=== PATIENT | female | born 1985 | race Caucasian/White ===

== ENCOUNTER 2018-05-29 18:11 | Emergency (ER) | payer OTHER ==
[2018-05-29 18:32] VITALS: O2SAT 99; BMI 26.6
--- NOTE | 2018-05-29 18:58 | RAD ---
HISTORY: cough, r/o pneumonia COMPARISON: None available. TECHNIQUE: Chest PA and lateral FINDINGS: LUNGS: No focal consolidation. Please note that chest x-ray has limited sensitivity for the detection of pulmonary masses. PLEURA: No significant pleural effusion identified. No definite pneumothorax . CARDIOVASCULAR: Heart size appears within normal limits. No atherosclerotic calcification present. OSSEOUS STRUCTURES: No acute osseous abnormality identified. VISUALIZED UPPER ABDOMEN: Unremarkable. OTHER FINDINGS: None. IMPRESSION: No focal consolidation.
[2018-05-29 19:35] LABS: INFLUENZA A B NEGATIVE FOR FLU A/B (NEGATIVE)
--- NOTE | 2018-05-29 19:51 | C.PDOC ---
History Of Present Illness 33 y/o female with no PMHx presents to ED complaining of flu like symptoms x 1 week. Associated sinus congestion and cough productive of yellow sputum. Sore throat worsened yesterday. She tried taking Dayquil this morning without any relief. Pt denies flu shot. Otherwise patient denies any known sick contacts, recent travel, abdominal pain, nausea, vomiting, diarrhea, urinary symptoms, back pain, neck pain/stiffness, chest pain, SOB, or any other associated symptoms. Time Seen by Provider: 05/29/18 18:26 Chief Complaint (Nursing): Flu-like Symptoms History Per: Patient History/Exam Limitations: no limitations Onset/Duration Of Symptoms: Days Current Symptoms Are (Timing): Still Present Location Of Pain: Throat Associated Symptoms: Cough, Sinus Drainage, Nasal Congestion Past Medical History Reviewed: Historical Data, Nursing Documentation, Vital Signs Vital Signs: Last Vital Signs Temp 102.0 F H 05/29/18 18:16 Pulse 113 H 05/29/18 18:16 Resp 19 05/29/18 18:16 BP 122/82 05/29/18 18:16 Pulse Ox 99 05/29/18 18:16 - Medical History PMH: No Chronic Diseases Surgical History: No Surg Hx Family History: States: Unknown Family Hx - Social History Hx Tobacco Use: No Hx Alcohol Use: Yes Hx Substance Use: No - Immunization History Hx Tetanus Toxoid Vaccination: No Hx Influenza Vaccination: No Hx Pneumococcal Vaccination: No Review Of Systems Except As Marked, All Systems Reviewed And Found Negative. Constitutional: Positive for: Fever, Other (bodyaches) Eyes: Negative for: Vision Change ENT: Positive for: Nose Discharge, Nose Congestion, Throat Pain. Negative for: Throat Swelling Cardiovascular: Negative for: Chest Pain Respiratory: Positive for: Cough, Sputum (yellow). Negative for: Shortness of Breath Gastrointestinal: Negative for: Nausea, Vomiting, Abdominal Pain, Diarrhea Genitourinary: Negative for: Dysuria, Frequency Musculoskeletal: Negative for: Neck Pain, Back Pain Skin: Negative for: Rash Neurological: Positive for: Headache. Negative for: Weakness, Dizziness Physical Exam - Physical Exam Appears: Non-toxic, No Acute Distress, Other (Febrile, temp 102 on arrival) Skin: Warm, Dry Head: Atraumatic, Normacephalic Eye(s): bilateral: Normal Inspection, PERRL, EOMI Ear(s): Bilateral: Normal Nose: Normal Oral Mucosa: Moist Tongue: Normal Appearing Lips: Normal Appearing Throat: Erythema, Exudate (right tonsil with exudate; bilateral tonsilar swelling), No Drooling, No Mass, No Other (no uvular deviation) Neck: Normal ROM, Supple, No Other (no meningeal signs) Lymphatic: Adenopathy (right anterior cervical) Chest: Symmetrical Cardiovascular: Rhythm Regular, No Murmur Respiratory: Normal Breath Sounds, No Rales, No Rhonchi, No Wheezing Gastrointestinal/Abdominal: Soft, No Tenderness, No Distention Back: Normal Inspection, No CVA Tenderness Extremity: Normal ROM, Capillary Refill (<2s) Extremity: Bilateral: Atraumatic, Normal Color And Temperature, Normal ROM Pulses: Left Radial: Normal, Right Radial: Normal Neurological/Psych: Oriented x3, Normal Speech, Normal Motor, Normal Sensation Gait: Steady ED Course And Treatment O2 Sat by Pulse Oximetry: 99 (RA) Pulse Ox Interpretation: Normal Medical Decision Making Medical Decision Making: Plan: - flu swab - rapid strep test - chest x-ray - 975 mg PO Tylenol Progress: Flu and strep negative. CXR negative for active disesase Will treat patient for pharyngitis with 500 mg PO Amoxicillin secondary to anterior cervical lymphadenopathy and exudative tonsilar swelling with complaints of severe sore throat. Pt out of window for treatment with tamiflu. On reassessment patient is resting comfortably and is now afebrile, repeat temp 99.5. Vitals have improved. Patient will be discharged home with Rx for Amoxicillin. Advised to follow up with PMD and ENT in 1-2 days. Diagnostic testing results and plan of care discussed with patient. Strict instructions given regarding prescription use, importance of followup, and signs/symptoms to return to ER including SOB, chest pain, abdominal pain, nausea, vomiting, or any other new/worsening symptoms. Pt verbalized understanding of discussion. Patient is A&Ox3, ambulating with steady gait, with vital signs stable for discharge. Disposition Counseled Patient/Family Regarding: Studies Performed, Diagnosis, Need For Followup, Rx Given - Disposition Referrals: [facility] [Outside] Oliver Camarena MD [Staff Provider] - Disposition: HOME/ ROUTINE Disposition Time: 19:54 Condition: IMPROVED Additional Instructions: Amoxicillin every 12 hours for 10 days Increase fluids Ibuprofen every 6 hours for fever Tylenol every 4 hours for fever Rest, no strenuous activity Followup with primary doctor within 2 days Followup with ENT within 2 days Return to ER with any new/worsening symptoms Prescriptions: Amoxicillin [Amoxil 500 mg Cap] 500 mg PO Q12H #20 cap Instructions: Sore Throat in Adults Forms: General Discharge Instructions, [facility] ([place]), Work Excuse - Clinical Impression Clinical Impression: Pharyngitis, Influenza-like illness - 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 - Scribe Statement The provider has reviewed the documentation as recorded by the Scribe Alea Tena All medical record entries made by the Romina were at my direction and personally dictated by me. I have reviewed the chart and agree that the record accurately reflects my personal performance of the history, physical exam, medical decision making, and the department course for this patient. I have also personally directed, reviewed, and agree with the discharge instructions and disposition.
[2018-05-29 19:57] VITALS: BP 115/70; PULSE 96; RESP 20; TEMP 99.5
== END 2018-05-29 19:58 | disposition home or self-care (01) ==
LOC: C.ER 18:11
DX: J11.1 Influenza due to unidentified influenza virus with other respiratory manifestations (principal)